=== PATIENT | male | born 1990 | race Caucasian/White ===

== ENCOUNTER 2016-07-20 10:04 | Emergency (ER) | payer OTHER | END 2016-07-20 11:13 | disposition home or self-care (01) | LOC: FER 10:04 | DX: L03.316 Cellulitis of umbilicus (principal) | CPT/HCPCS: 86403; 87070; 87077; 87205; 99283 ==

== ENCOUNTER 2016-08-05 09:04 | Emergency (ER) | payer OTHER | END 2016-08-05 11:36 | disposition home or self-care (01) | LOC: FER 09:04 | DX: S93.602A Unspecified sprain of left foot, initial encounter (principal) | CPT/HCPCS: 73630; 99283 ==

== ENCOUNTER 2020-04-14 07:51 | Emergency (ER) | payer OTHER ==
[~2020-04-14 07:51] MED LIST: ASPIRIN EC325 MG PO; FLEXERIL10 MG PO; MOTRIN600 MG PO; PERCOCET 7.5/321 TAB PO; PRILOSEC20 MG PO
[2020-04-14] MEDS ORDERED: COLCRYS0.6 MG PO (09:19)
[2020-04-14] MEDS ORDERED: INDOCIN25 MG PO (09:19)
[2020-07-27] MEDS ORDERED: OS-CAL500 MG PO (10:12)
[2020-07-27] MEDS ORDERED: PERCOCET 7.5/321 TAB PO (13:40)
== END 2020-04-14 09:40 | disposition home or self-care (01) ==
LOC: FER 07:51
DX: M79.672 Pain in left foot (principal); Z88.2 Allergy status to sulfonamides
CPT/HCPCS: 73630

== ENCOUNTER → 2020-07-27 | Day surgery (SDC) | payer OTHER ==
[~2020-07-27] VITALS: Ht 193 cm; Wt 183.0 kg
[~2020-07-27] MED LIST changes: +COLCRYS0.6 MG PO; +INDOCIN25 MG PO; +OS-CAL500 MG PO
[2020-07-27 10:40] LABS: HCT 45.3 % (42.0-52.0); HGB 14.9 g/dl (13.2-18.0); MCH 28.4 pg (25.0-31.0); MCHC 32.9 g/dL (32.0-36.0); MCV 86.3 fL (78.0-100.0); MPV 12.4 fL (6.0-9.5); RBC 5.25 M/uL (4.70-6.00); RDW 13.1 % (11.5-14.0); WBC 11.3 K/uL (4.0-10.5)
== END | disposition home or self-care (01) ==
LOC: FAS 09:13
PROVIDERS: Legal Medicine
DX: T84.84XA Pain due to internal orthopedic prosthetic devices, implants and grafts, initial encounter (principal); K21.9 Gastro-esophageal reflux disease without esophagitis; Z79.899 Other long term (current) drug therapy; Z88.2 Allergy status to sulfonamides
CPT/HCPCS: 36415; 76000; J0690; J1100; J1170; J2250; J2405; J2704; J2710; J2795; J3010; J7120

== ENCOUNTER 2021-04-05 09:18 | Emergency (ER) | payer OTHER ==
[2021-04-05 13:49] LABS: BASOPHIL 0.7 % (0-2); EOSINOPHIL 1.9 % (0-5); HCT 51.3 % (42.0-52.0); HGB 16.4 g/dl (13.2-18.0); LYMPHOCYTE 23.6 % (15-48); MCH 28.4 pg (25.0-31.0); MCV 88.8 fL (78.0-100.0); MONOCYTE 4.8 % (0-12); NEUTROPHIL 68.6 % (41-80); NRBC 0; PLT 262 K/uL (150-400); RBC 5.78 M/uL (4.70-6.00); RDW 13.2 % (11.5-14.0); WBC 16.4 K/uL (4.0-10.5)
[2021-04-05 14:07] LABS: ALBUMIN 3.7 g/dL (3.4-5.0); BILIRUBIN - TOTAL 0.5 mg/dL (0.2-1.0); BUN/CREAT RATIO (CALC) 10.8 RATIO; CREATININE 0.83 mg/dL (0.67-1.17); GLOBULIN (CALCULATION) 5.2 g/dL; POTASSIUM 4.5 mmol/L (3.5-5.1); TOTAL PROTEIN 8.9 g/dL (6.4-8.2)
[2021-04-05 14:51] LABS: CORONAVIRUS 2019 SARS-COV-2 NEGATIVE (NEGATIVE); INFLUENZA A NAA NEGATIVE (NEGATIVE)
[2021-04-05] MEDS ORDERED: REGLAN10 MG PO (16:27)
[2021-04-05] MEDS ORDERED: MEDROL 4MG DOSEP4 MG PO (16:28)
[2021-04-05] MEDS ORDERED: VENTOLIN HFA IN18 GM INH (16:29)
== END 2021-04-05 16:34 | disposition home or self-care (01) ==
LOC: FER 09:18
PROVIDERS: Nurse Practitioner Family
DX: R11.10 Vomiting, unspecified (principal); Z88.2 Allergy status to sulfonamides; Z20.822 Contact with and (suspected) exposure to COVID-19
CPT/HCPCS: 36415; 71045; 76705; 80053; 83690; 85025; U0002